=== PATIENT | female | born 1990 | race Two or more races ===

== ENCOUNTER 2023-01-29 03:21 | Emergency (ER) | payer OTHER ==
[~2023-01-29] VITALS: Ht 160 cm; Wt 90.3 kg
[2023-01-29 06:23] LABS: HEMATOCRIT 29.9 % (36.0-45.00); HEMOGLOBIN 9.8 g/dL (12.0-15.00); MEAN CELL VOLUME 72.9 fL (80.00-100.00); MEAN CORPUSCULAR HEMOGLOBIN 23.9 pg (27.00-32.0); MEAN CORPUSCULAR HGB CONC 32.8 g/dl (32.0-36.0); PLATELET COUNT 288 K/uL (150-450); RED BLOOD COUNT 4.11 M/uL (4.00-6.00); RED CELL DISTRIBUTION WIDTH 16.7 % (11.5-14.5)
[2023-01-29 07:00] LABS: ALBUMIN 2.7 gm/dL (3.4-5.0); BILIRUBIN TOTAL 0.62 mg/dL (0.3-1.2); CALCIUM 8.7 mg/dL (8.5-10.1); CREATININE SERUM 0.49 mg/dL (0.55-1.02); GFR 148.29; GLOBULINA 4.4 G/DL (2.4-3.5); POTASSIUM 3.63 mEq/L (3.5-5.1); TOTAL PROTEIN 7.1 gm/dL (6.4-8.2)
[2023-01-29 07:40] LABS: PH,URINE 5.5 (5.0-8.0); URINE APPEARANCE Clear; URINE BILIRRUBIN Negative (NEGATIVE); URINE BLOOD Negative; URINE COLOR Dark Yellow; URINE GLUCOSE Negative (NEGATIVE); URINE LEUKOCYTE Trace; URINE NITRATE Negative; URINE PROTEIN 30 (NEGATIVE)
[2023-01-29 07:44] LABS: URINE BACTERIA 1612.6 uL (0.0-1933); URINE EPITHELIAL CELLS 40.1 uL (0.0-38.8); URINE WBC 22.4 uL (0.0-23.2)
[2023-01-29 08:48] LABS: URINE YEAST FEW /hpf
== END 2023-01-29 13:54 | disposition home or self-care (01) ==
LOC: ER 03:22
PROVIDERS: General Practice
DX: O21.9 Vomiting of pregnancy, unspecified (principal); Z3A.20 20 weeks gestation of pregnancy; R10.13 Epigastric pain